=== PATIENT | female | born 1965 | race Caucasian/White ===

== ENCOUNTER → 2017-01-07 | Outpatient (CLI) | payer OTHER ==
[~2017-01-07] MED LIST: ALPR-411 PO; BACL10TA PO; CALC500C70 PO; Gabapentin PO; MELATAB2 PO; MULT-506 PO; OXYC-57 PO; PANT40TA PO; VENL150C PO; Vitamin B12 IM; ZOLP5TAB PO
--- NOTE | 2017-01-07 15:28 | DIAGNOSTIC IMAGING REPORT ---
THORACIC SPINE 3 VIEWS CLINICAL HISTORY: Thoracic radiculopathy. FINDINGS: AP, lateral, and swimmer's views of the thoracic spine are obtained. No prior studies are available for comparison at the time of dictation. The skeletal structures are osteopenic. Vertebral body height and alignment are maintained throughout the thoracic spine. There is evidence of discectomy at C6-C7. There is mild hyperkyphosis centered at this level. Mild disc space narrowing is seen at the remaining lumbar levels. Anterior osteophytes are noted throughout. The transverse processes and pedicles are grossly intact on the frontal view. The lung parenchyma is clear as visualized. Surgical clips are noted at the esophageal hiatus. IMPRESSION: 1. No acute bony abnormality is seen in the thoracic spine. 2. Osteopenia with mild degenerative and postoperative change as above. Dictated: 01/07/2017 3:23 PM Transcribed: 01/07/2017 3:28 PM [place] Electronically signed by: Pelon Xie M.D. 01/07/2017 3:29 PM Dictated Date/Time: 01/07/2017 3:23 PM
--- NOTE | 2017-01-07 15:36 | DIAGNOSTIC IMAGING REPORT ---
RIGHT RIBS UNILATERAL WITH PA CHEST CLINICAL HISTORY: Thoracic radiculopathy. COMPARISON STUDY: No previous studies for comparison. FINDINGS: There is no pneumothorax or pleural effusion. Lungs are clear. Cardiac size is normal. Mediastinal contours are normal. The posterolateral portion of the right fifth rib is absent. There is also deformity of the right sixth rib. No acute fracture of the right-sided ribs is identified by radiography. A 1 level thoracic spine discectomy with interbody spacer placement as noted. There are postsurgical findings at the gastroesophageal junction. IMPRESSION: 1. No pneumothorax. No acute right rib fractures. 2. Deformity of the right fifth and sixth ribs with absence of a portion of the posterolateral aspect of the right fifth rib. This is likely postsurgical or posttraumatic. Correlation with prior traumatic or surgical history is recommended. Electronically signed by: Daniel Ta M.D. 01/07/2017 3:35 PM Dictated Date/Time: 01/07/2017 3:27 PM
== END | disposition home or self-care (01) ==
LOC: C.RADBC 14:27
PROVIDERS: ATTEND Anesthesiology
DX: M54.14 Radiculopathy, thoracic region (principal)

== ENCOUNTER → 2017-03-16 | Outpatient (CLI) | payer OTHER ==
--- NOTE | 2017-03-16 11:16 | DIAGNOSTIC IMAGING REPORT ---
CHEST 2 VIEWS ROUTINE HISTORY: S/P RT INTERCOSTAL NERVE BLOCK,CHECK FOR PNEUOMOTHORAX COMPARISON: Chest and right RIBS 01/07/2017. FINDINGS: Right-sided post thoracotomy changes are again noted. This remains unchanged. No pneumothorax. No pleural effusions. No focal lung consolidations. The heart is normal in size. Surgical clips within the upper abdomen. IMPRESSION: No pneumothorax. Electronically signed by: Eliceo Jimenez M.D. 03/16/2017 11:14 AM Dictated Date/Time: 03/16/2017 11:11 AM
== END | disposition home or self-care (01) ==
LOC: C.RADBC 10:09
PROVIDERS: ATTEND Anesthesiology
DX: Z98.890 Other specified postprocedural states (principal)

== ENCOUNTER → 2017-06-09 | Outpatient (CLI) | payer OTHER ==
--- NOTE | 2017-06-09 15:42 | DIAGNOSTIC IMAGING REPORT ---
CHEST 2 VIEWS ROUTINE CLINICAL HISTORY: S/P RT INTERCOSTAL NERVE BLOCK dyspnea COMPARISON STUDY: 03/16/2070 FINDINGS: Changes of right thoracotomy are again noted. Lungs are clear. No evidence pneumothorax. IMPRESSION: No evidence pneumothorax. Lungs are clear. The above report was generated using voice recognition software. It may contain grammatical, syntax or spelling errors. Electronically signed by: Nico Valentin M.D. 06/09/2017 3:41 PM Dictated Date/Time: 06/09/2017 3:40 PM
== END | disposition home or self-care (01) ==
LOC: C.RADBC 15:06
PROVIDERS: ATTEND Anesthesiology
DX: Z98.890 Other specified postprocedural states (principal)